=== PATIENT | male | born 1955 | race Caucasian/White ===

== ENCOUNTER → 2018-05-28 14:59 | Outpatient (CLI) | payer OTHER, SELFPAY ==
--- NOTE | 2018-05-28 | DI.RAD.S_ITS ---
PROCEDURE: XR KNEE RT 3V INDICATIONS: BILAT KNEE PAIN TECHNIQUE: 3 views of the knee were acquired. COMPARISON: [facility], , KNEE 3V RIGHT, 01/26/2014, 16:05. FINDINGS: Bones: No fractures or dislocations. No suspicious bony lesions. Mild tricompartmental osteoarthritis is seen. No patella subluxation. Soft tissues: Small joint effusion. No suspicious soft tissue calcifications. IMPRESSION: Mild tricompartment osteoarthritis and small right suprapatellar joint effusion. Dictated by: Ric Leslie M.D. on 05/28/2018 at 15:33 Approved by: Ric Leslie M.D. on 05/28/2018 at 15:34
--- NOTE | 2018-05-28 | DI.RAD.S_ITS ---
PROCEDURE: XR KNEE LT 3V INDICATIONS: BILAT KNEE PAIN TECHNIQUE: 3 views of the knee were acquired. COMPARISON: [facility], , KNEE 3V RIGHT, 01/26/2014, 16:05. FINDINGS: Bones: No fractures or dislocations. No suspicious bony lesions. Mild tricompartmental osteoarthritis is seen. Soft tissues: No joint effusion. No suspicious soft tissue calcifications. IMPRESSION: Mild tricompartment osteoarthritis. Dictated by: Ric Leslie M.D. on 05/28/2018 at 15:30 Approved by: Ric Leslie M.D. on 05/28/2018 at 15:33
== END ==
PROVIDERS: Visit Provider Family Medicine
DX: M25.561 Pain in right knee (principal); M25.562 Pain in left knee; M17.0 Bilateral primary osteoarthritis of knee; M25.461 Effusion, right knee
CPT/HCPCS: 73562